=== PATIENT | male | born 1985 | race Caucasian/White ===

== ENCOUNTER 2021-11-09 15:42 | Emergency (ER) | payer OTHER ==
[~2021-11-09] VITALS: Ht 162.6 cm; Wt 68.0 kg
[2021-11-09] MEDS ORDERED: IPRATROPIUM/ALBUTEROL 0.5-3(2.5)MG/3ML NEB HHN ONE (17:15)
[2021-11-09] MEDS ORDERED: PREDNISONE 20MG TABLET PO ONE (17:15)
[2021-11-09] MEDS ORDERED: P50 MT (18:10)
[2021-11-09] MEDS ORDERED: ALBU6.7H9 INH (18:10)
[2021-11-09 18:38] VITALS: BP 132/96
== END 2021-11-09 18:44 ==
LOC: ER 15:42
DX: J45.901 Unspecified asthma with (acute) exacerbation (principal); I10 Essential (primary) hypertension
CPT/HCPCS: 82962; 94640; 99283; J7512; Z7610; 94664